=== PATIENT | female | born 1970 | race Caucasian/White ===

== ENCOUNTER 2021-05-14 10:30 | Outpatient (REF) | payer OTHER, SELFPAY ==
--- NOTE | ~2021-05-14 | CT_ITS ---
EXAMINATION: CT CHEST WITHOUT CONTRAST CLINICAL INFORMATION: Sequela of other specified infectious process COMPARISON: None TECHNIQUE: Multidetector volumetric CT imaging of the chest was done. Axial MIP volume rendering provided. Sagittal and coronal reformatted images were obtained. This CT examination was performed using dose optimization techniques as appropriate, variously including the following: *Automated exposure control *Adjustment of mA and/or kV according to patient size (this includes techniques or standardized protocols for targeted exams where dose is matched to indication/reason for exam; i.e. extremities or head) *Use of iterative reconstruction technique DLP: 163 mGy-cm FINDINGS: LUNGS: There is evidence of paraseptal emphysema. There are increased peripheral interstitial markings seen in the dependent bilateral lower lobes. It is uncertain whether this could represent early changes of interstitial lung disease or is related to dependent atelectasis. This could be better evaluated with prone imaging. The lungs are otherwise clear. No mass or nodule is seen. No endobronchial or endotracheal lesion is seen. MEDIASTINUM: There are small mediastinal lymph nodes. No enlarged lymph nodes are seen. The heart does not appear enlarged. There is no pericardial effusion. The thoracic aorta is normal in caliber. The visualized thyroid gland is unremarkable. There is a small esophageal hernia. PLEURA: There is no pleural effusion. No pleural mass or thickening. AXILLA: No lymphadenopathy. UPPER ABDOMEN: Unremarkable. OSSEOUS STRUCTURES: There are degenerative changes of the spine. CT/CT chest wo con IMPRESSION: Paraseptal emphysema. Increased interstitial markings seen in the peripheral dependent bilateral lower lobes questionable for dependent atelectasis versus changes of early interstitial lung disease. This could be better evaluated with prone imaging. Small esophageal hernia.
--- NOTE | 2021-05-14 14:46 | PFT_ITS ---
Forced vital capacity, FEV1, LRT31-51, and MVV are all normal. Post bronchodilator therapy, there is no change. Total lung capacity and residual volume normal. Diffusion capacity is markedly decreased. CONCLUSION: Normal pulmonary function test except for marked decrease in diffusion capacity, which could be due to pulmonary emphysema, non-pulmonary factors, or technical reasons. Clinical correlation is recommended. MD LENNY Cardenas/SARTHAK / [id number]
== END 2021-05-14 10:31 | disposition home or self-care (01) ==
LOC: HO.CT 10:30
PROVIDERS: PCP Internal Medicine; Visit Provider Internal Medicine Pulmonary Disease
DX: B94.8 Sequelae of other specified infectious and parasitic diseases (principal)
CPT/HCPCS: 71250; 94060; 94727; 94729

== ENCOUNTER → 2021-06-09 13:06 | Outpatient (BNVA) | payer OTHER, SELFPAY | PROVIDERS: PCP Internal Medicine; Visit Provider Internal Medicine Pulmonary Disease ==

== ENCOUNTER → 2021-10-28 13:52 | Outpatient (BNVA) | payer OTHER, SELFPAY | PROVIDERS: PCP Internal Medicine; Visit Provider Internal Medicine Pulmonary Disease ==

== ENCOUNTER 2023-11-03 08:06 | Outpatient (REF) | payer OTHER, SELFPAY ==
--- NOTE | 2023-11-03 08:13 | EMG_ITS ---
Bilateral median and ulnar motor and sensory studies were performed. Bilateral radial, antecubital, lateral and medial sensory studies were performed and paraspinal muscles were tested with a needle. IMPRESSION: 1. 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 2. Mild bilateral ulnar neuropathy across cubital tunnel. MD OG Carrion/SARTHAK / [id number]
== END 2023-11-03 08:07 | disposition home or self-care (01) ==
LOC: HO.NEURO 08:06
PROVIDERS: PCP Internal Medicine; Visit Provider Internal Medicine
DX: R20.0 Anesthesia of skin (principal)
CPT/HCPCS: 95886; 95913